=== PATIENT | female | born 1995 | race Caucasian/White ===

== ENCOUNTER 2023-02-26 01:32 | Emergency (ER) | payer BC, SELFPAY ==
[2023-02-26 01:37] VITALS: BP 115/72; PULSE 85; RESP 18; TEMP 36.7; O2SAT 99; BMI 38.3
--- NOTE | 2023-02-26 01:45 | ED.GENADULT ---
HPI - General Adult General Chief complaint: Animal Bite Stated complaint: got attacked by her cat Time Seen by Provider: 02/26/23 01:45 History of Present Illness HPI narrative: CC: Cat Bite/ Scratch pt. was scratched by her own cat. was vaccinated as kitten, but none since then . cat is 6 years old. inside cat. wanted to have scratches looked at d/t may needing stitches. 27-year-old woman presenting to the emergency department after being scratched by her cat. Cat is not up to date on immunizations but resides only inside. Amparo herself is up-to-date. She is just wondering if some of these injuries might require repair in some way. Is not complaining of significant pain. Injuries occurred this evening. Related Data Home Medications Medication Instructions Recorded Confirmed No Known Home Medications 02/26/23 02/26/23 Allergies Allergy/AdvReac Type Severity Reaction Status Date / Time No Known Drug Allergies Allergy Verified 02/26/23 01:39 Review of Systems Status of ROS: Reports: 6 or more systems reviewed and unremarkable except as noted in History and below [facility] Medical History No significant past medical history Surgical History No significant past surgical history Social History Smoking Status: Never smoker Second hand tobacco smoke exposure: No How often do you have a drink containing alcohol: never How often do you have six or more drinks on one occasion: Never AUDIT-C Alcohol total score: 0 Non-prescribed substance use: marijuana (any form) Exam Narrative: Exam Narrative: Very pleasant. NAD. Breathing easily. Well-perfused peripherally. Examination of skin/extremities in question left leg an arm shows numerous small puncture wounds. There are a few that are a little more than an 8th of an inch and subtly open. I think there are bite roger here actually. These are still intradermal. No bite or scratch roger over the dorsum of the hand. Const: Vital Signs, click to edit/add: Vital Signs - 24 hr 02/26/23 01:37 Temperature 98.1 F Pulse Rate [Right Pulse Oximeter] 85 Respiratory Rate 18 Blood Pressure [Ri ght Upper Arm] 115/72 Pulse Oximetry 99 Oxygen Delivery Me thod Room Air Documenting provider has reviewed patient's vital signs: yes Course Vital Signs Vital signs: Initial Vital Signs Temperature 98.1 F 02/26/23 01:37 Temperature Source Temporal Artery Scan 02/26/23 01:37 Pulse Rate 85 02/26/23 01:37 Respiratory Rate 18 02/26/23 01:37 Blood Pressure 115/72 02/26/23 01:37 Blood Pressure Mean 86 02/26/23 01:37 Blood Pressure Position Sitting 02/26/23 01:37 Pulse Oximetry 99 02/26/23 01:37 Oxygen Delivery Method Room Air 02/26/23 01:37 Vital Signs Temperature 98.1 F 02/26/23 01:37 Pulse Rate 85 02/26/23 01:37 Respiratory Rate 18 02/26/23 01:37 Blood Pressure 115/72 02/26/23 01:37 Pulse Oximetry 99 02/26/23 01:37 Oxygen Delivery Method Room Air 02/26/23 01:37 Temperature 98.1 F 02/26/23 02:25 Pulse Rate 79 02/26/23 02:25 Respiratory Rate 18 02/26/23 02:25 Blood Pressure 120/74 02/26/23 02:25 Pulse Oximetry 99 02/26/23 02:24 Oxygen Delivery Method Room Air 02/26/23 02:24 Medical Decision Making MDM Narrative Medical decision making narrative: I do not think that will need intervention beyond proper cleaning here. The largest of these wounds will heal well with only minimal scarring. With potential risk of infection probably best not to repair in this case. Given location, expect these will heal well; less likely to lead to infection. Decided to irrigate with normal saline. This was done under little bit of pressure with igloo. A little uncomfortable but tolerated well. Antibiotic ointment and Band-Aids See patient discharge plan Discharge Plan Discharge Clinical Impression: Cat bite, Cat scratch Patient Disposition: Home, Self-Care Condition: Stable Additional Instructions: Watch for spreading redness after couple of days, marked increase in heat/redness/swelling, purulent drainage. Swollen lymph nodes or fever would also be concerning. I understand from you that you had your tetanus updated approximately 4 years ago. If necessary try to be vaccinated within 3 days. Might apply antibiotic ointment to number these injuries couple of times daily over the next few days. Prescriptions: No Action No Known Home Medications Stand Alone Forms: [employer] Info Instructions
[2023-02-26 02:24] VITALS: BP 120/74; PULSE 79; RESP 18; TEMP 36.7; O2SAT 99
[2023-02-26 02:25] VITALS: BP 120/74; PULSE 79; RESP 18; TEMP 36.7
== END 2023-02-26 02:25 | disposition home or self-care (01) ==
PROVIDERS: Emergency Provider Family Medicine
DX: S81.852A Open bite, left lower leg, initial encounter (principal); S41.152A Open bite of left upper arm, initial encounter; W55.01XA Bitten by cat, initial encounter
CPT/HCPCS: 99282; 99283; 99284

== ENCOUNTER 2023-04-01 01:58 | Emergency (ER) | payer BC, SELFPAY ==
[2023-04-01 01:58] VITALS: BP 145/94; PULSE 80; RESP 16; TEMP 36.8; O2SAT 97
[2023-04-01] MEDS: ONDANSETRON 2 MG/ML inj 4 MG IVP (03:20)
[2023-04-01] MEDS: 0.9 % SODIUM CHLORIDE 1000 ml 1,000 ML 2000 ML IV (03:20)
[2023-04-01] MEDS: KETOROLAC 30 MG/ML inj IVP (03:20)
[2023-04-01] MEDS: dexAMETHasone 10 MG/ML inj IVP (03:20)
--- NOTE | 2023-04-01 04:20 | ED.GENADULT ---
HPI - General Adult General Chief complaint: Headache/Migraine Stated complaint: Migraine Time Seen by Provider: 04/01/23 04:13 History of Present Illness HPI narrative: Patient c/o migraine since . Patient was at [facility] Sunday afternoon and was given toradol, then told to go home and take Benadryl. Patient states she was able to sleep, but then woke up at 2330 and the migraine returned. Patient also c/ o 30 minutes of double vision on Sunday while driving to work. Patient c /o phono and photophobia, and nausea without vomiting. Patient has h/o migraines that were more frequent in the past. Patient also reports increased stress the last few weeks. Initial GCS 15. 27-year-old young woman here with complaint of migraine. There is nothing unusual about this headache as she has had similar, however duration is unusual. Feels discomfort at the base of her neck in the back and forehead. She has been experiencing light and sound sensitivity. Nausea. Think she is dehydrated this might be contributing along with experiencing more stress lately. Onset of headache was 4 days ago. Was seen yesterday in urgent care and given ketorolac and was to take diphenhydramine. Woke again now with this headache presenting now to the emergency department. No loss of sensation. No focal weakness. Medications noted Related Data Home Medications Medication Instructions Recorded Confirmed rizatriptan 10 mg tablet 10 mg PO DAILY 03/31/23 03/31/23 topiramate 25 mg tablet mg PO 03/31/23 03/31/23 venlafaxine 37.5 mg 37.5 mg PO DAILY 03/31/23 03/31/23 capsule,extended release 24 hr Allergies Allergy/AdvReac Type Severity Reaction Status Date / Time No Known Drug Allergies Allergy Verified 03/31/23 12:49 Review of Systems Status of ROS: Reports: 6 or more systems reviewed and unremarkable except as noted in History and below [facility] Medical History No significant past medical history Surgical History No significant past surgical history Social History Smoking Status: Never smoker Second hand tobacco smoke exposure: No How often do you have a drink containing alcohol: never How often do you have six or more drinks on one occasion: Never AUDIT-C Alcohol total score: 0 Non-prescribed substance use: marijuana (any form) Exam Narrative: Exam Narrative: Pleasant. Seems uncomfortable. Photophobic. Darkened room clearly more comfortable. Skin is warm and dry, no rash. Well-perfused peripherally without edema. Moving all extremities without difficulty with good strength. Speaking fluidly. Cranial nerves 2-12 intact. GCS 15. Eyes with equal pupils are briskly reactive and accommodating. Tense and tender low pericervical and trapezial musculature. Const: Vital Signs, click to edit/add: Vital Signs - 24 hr 04/01/23 01:58 Temperature 98.2 F Pulse Rate [Left P ulse Oximeter] 80 Respiratory Rate 16 Blood Pressure [Ri ght Upper Arm] 145/94 H Pulse Oximetry 97 Oxygen Delivery Me thod Room Air Documenting provider has reviewed patient's vital signs: yes Course Vital Signs Vital signs: Initial Vital Signs Temperature 98.2 F 04/01/23 01:58 Temperature Source Temporal Artery Scan 04/01/23 01:58 Pulse Rate 80 04/01/23 01:58 Pulse Rhythm Regular 04/01/23 01:58 Respiratory Rate 16 04/01/23 01:58 Blood Pressure 145/94 H 04/01/23 01:58 Blood Pressure Mean 111 H 04/01/23 01:58 Blood Pressure Position Semi-Fowlers 04/01/23 01:58 Pulse Oximetry 97 04/01/23 01:58 Oxygen Delivery Method Room Air 04/01/23 01:58 Vital Signs Temperature 98.2 F 04/01/23 01:58 Pulse Rate 80 04/01/23 01:58 Respiratory Rate 16 04/01/23 01:58 Blood Pressure 145/94 H 04/01/23 01:58 Pulse Oximetry 97 04/01/23 01:58 Oxygen Delivery Method Room Air 04/01/23 01:58 Temperature 98.2 F 04/01/23 01:58 Pulse Rate 70 04/01/23 04:50 Respiratory Rate 16 04/01/23 04:50 Blood Pressure 128/62 04/01/23 04:50 Pulse Oximetry 97 04/01/23 04:50 Oxygen Delivery Method Room Air 10/08/23 04:50 Medical Decision Making MDM Narrative Medical decision making narrative: Discussed further workup. Perhaps need to be little more aggressive in breaking this headache. This is not a new event so I do not think any imaging is needed here. No red flags otherwise with symptoms though there was mention much earlier in course of some transient diplopia. IVs initiated. Receives normal saline, ketorolac, Zofran and I think with this abrupt recurrence and duration and hopefully for some longer-term effect, did also give dexamethasone. Was markedly improved prior to departure. Medical Records Medical records reviewed: Yes I reviewed the patient's medical records Discharge Plan Discharge Clinical Impression: Headache Patient Disposition: Home w/ Parent or Adult Condition: Improved Additional Instructions: Rest. Focus on hydration. Particularly for the tension component of headaches, I think a little heart pumping exercise every day is a good idea. Stretching of the neck and upper back as well. Try to get regular and quality sleep; hopefully the cat is not interfering with this. Prescriptions: No Action topiramate 25 mg tablet PO venlafaxine 37.5 mg capsule,extended release 24hr 37.5 mg PO DAILY rizatriptan 10 mg tablet 10 mg PO DAILY Follow Up/Referrals: Provider,Not a Local [Primary Care Provider] - Stand Alone Forms: [employer] Info Instructions
[2023-04-01 04:50] VITALS: BP 128/62; PULSE 70; RESP 16; O2SAT 97
== END 2023-04-01 04:55 | disposition home or self-care (01) ==
PROVIDERS: Emergency Provider Family Medicine
DX: R51.9 Headache, unspecified (principal)
CPT/HCPCS: 96374; 96375; 99283; 99284; J1100; J1885; J2405; J7030